=== PATIENT | female | born 1965 | race Caucasian/White ===

== ENCOUNTER 2018-11-09 22:13 | Emergency (ER) | payer OTHER ==
[~2018-11-09] VITALS: Ht 154.9 cm; Wt 71.7 kg
[2018-11-09 22:26] VITALS: Ht 154.9 cm; Wt 71.7 kg
[2018-11-09 22:57] LABS: BASOPHIL % 0.3 % (0-2); PLATELET COUNT 285 x10^3mcL (130-400); RED CELL DISTRIBUTION WIDTH 12.8 % (11.5-14.5)
[2018-11-09 23:05] LABS: CALCIUM 8.6 mg/dL (8.5-10.1); CARBON DIOXIDE 28.9 mmol/L (21-32); CHLORIDE SERUM 104 mmol/L (98-107); GFR1 > 60 mL/min; GLUCOSE SERUM 103 mg/dL (74-106); POTASSIUM SERUM 3.4 mmol/L (3.5-5.1); SODIUM SERUM 141 mmol/L (136-145)
[2018-11-09 23:15] LABS: ALKALINE PHOSPHATASE 80 U/L (46-116); ALT/SGPT 36 U/L (14-59); AST/SGOT 18 U/L (15-37); BILIRUBIN TOTAL 0.8 mg/dL (0.20-1.00); LIPASE 145 IU/L (73-393); TOTAL PROTEIN, SERUM 6.9 g/dL (6.4-8.2)
[2018-11-09 23:20] LABS: ALBUMIN 3.2 g/dL (3.4-5.0)
[2018-11-10 01:45] VITALS: BP 117/74
== END 2018-11-10 01:45 | disposition home or self-care (01) ==
LOC: ED 22:13
PROVIDERS: Emergency Medicine
DX: K52.9 Noninfective gastroenteritis and colitis, unspecified (principal)
CPT/HCPCS: J2270; J2405; J7030

== ENCOUNTER 2020-05-04 20:40 | Emergency (ER) | payer OTHER ==
[~2020-05-04] VITALS: Ht 154.9 cm; Wt 68.0 kg
[2020-05-04 20:52] VITALS: Ht 154.9 cm; Wt 68.0 kg
[2020-05-04 22:29] VITALS: BP 158/86
== END 2020-05-04 22:29 | disposition home or self-care (01) ==
LOC: ED 20:40
DX: S92.511A Displaced fracture of proximal phalanx of right lesser toe(s), initial encounter for closed fracture (principal); W22.8XXA Striking against or struck by other objects, initial encounter; Y93.89 Activity, other specified; Y92.89 Other specified places as the place of occurrence of the external cause; Y99.8 Other external cause status